=== PATIENT | female | born 1955 | race Caucasian/White ===

== ENCOUNTER → 2017-02-14 | Outpatient (CLI) | payer BC ==
--- NOTE | 2017-02-14 10:52 | DI ---
CT ABD W/CN AND PELVIS W/CN,02/14/2017 9:03 AM: Clinical History: Intestinal ulcer and inflammatory bowel syndrome. Previous Exam: October 19, 2014 Findings: Multiple helically acquired CT images are obtained through the abdomen and pelvis following the intra venous administration of 75 cc of Isovue 300, and demonstrate some stable subsegmental atelectasis in the right middle lobe. The lung bases are clear. There is diffuse fatty infiltration of the liver. Patient is status post ch olecystectomy. The spleen, adrenals and kidneys are unremarkable except for a few simple cysts noted in subcentimeter hypodensities most consistent with simple cysts. There is oral contrast noted as well. There are a few shotty mesenteric lymph nodes. There is prominence of multiple spinal bowel loops within the right lower quadrant and a segment of t hickened, decreased caliber small bowel involving the distal residual ileum. Patient is status post r esection of the terminal ileum. Impression: Prominent small bowel loops with a transition point at a thickened and narrowed section of distal ile um. These findings are most consistent with Crohn's disease. This thickened area was seen on the prio r exam as well and does not appear to be morphologically different than on the prior exam.
== END ==
LOC: CT 08:59
PROVIDERS: ATTEND Internal Medicine Gastroenterology
DX: K63.3 Ulcer of intestine (principal); K58.9 Irritable bowel syndrome, unspecified; K64.0 First degree hemorrhoids
CPT/HCPCS: 74177